=== PATIENT | male | born 1965 | race African-American/Black ===

== ENCOUNTER → 2016-12-29 | Outpatient (CLI) | payer MEDICARE, BC, OTHER ==
[~2016-12-29] MED LIST: ACETAMINOPHEN650 M3; ADALAT CC PO; ADALATCC; ALBUTEROL17 GM INH; ALLOPURINOL300 MG PO; ALTACE; ALTACE PO; AMLODIPINE BESY10 MG PO; AMOXICILLIN PO; ATENOLOL PO; AUGMENTIN PO; BACTRIM DS TABL1 TA1 PO; BENAZEPRIL PO; BENICAR; BENICAR HCT 40-1 TA1 PO; BYSTOLIC10 MG PO; BYSTOLIC20 MG PO; BYSTOLIC5 MG PO; CALCITROL PO; CARAFATE1 GM PO; CARBIDOPA LE S PO; CARBIDOPA PO; CARBIDOPA-LEVO1 EACH PO; CARBO/LEVO PO; CARVEDILOL25 MG PO; CATAPRES0.1 MG PO; CENTRUM PO; CHLORTHALIDONE50 M1 PO; CLOPIDOGREL75 MG PO; COLCRYS0.6 MG PO; CRESTOR; CRESTOR PO; CRESTOR10 MG PO; CYMBALTA PO; CYMBALTA20 MG PO; CYMBALTA30 MG PO; DEPO-TESTOTERO100 MG IM; DESYREL100 MG PO; DULOXETINE PO; EC-NAPROSYN500 MG; EC-NAPROSYN500 MG PO; ECOTRIN325 MG PO; FENTANYL; FENTANYL PO; FENTANYL1 EAC3 TOP; FERRO-TIME325 MG PO; FERROUS SULFATE; FERROUS SULFATE PO; FLEXERIL; FLEXERIL10 MG PO; GABAPENTIN400 MG PO; GABAPENTIN800 MG PO; HCTZ PO; HUMALOG 50/50; HUMALOG MI100 UNIT/3; HUMALOG MIX 50/10 ML SQ; HUMALOG MIX 50/53 ML SUBQ; HUMALOG MIX 75/10 ML; HYDRALAZINE HCL25 MG PO; HYDROCODON-ACE1 EAC5 PO; HYDROCODON-ACE1 EAC9 PO; IMDUR-ER30 M2 PO; INDOMETHACIN25 MG PO; LASIX PO; LODOSYN25 M1; LOPRESSOR PO; LOTENSIN PO; LOTREL 5/20 MG1 CAP PO; MECLIZINE PO; MEDI-MECLIZINE25 M1 PO; MEGACE PO; MEGESTROL ACETA40 MG PO; MEGESTROL PO; METFORMIN PO; METOPROLOL PO; METOPROLOL SUCC25 MG PO; METOPROLOL TART25 MG PO; MIRALAX17 GM PO; MIRAPEX; MULTI-VITAMIN1 TAB; MYLANTA GAS80 M1; NAPROSYN PO; NAPROSYN500 MG PO; NAPROXEN; NAPROXEN375 MG PO; NEPHRO-VITE RX T1 M1 PO; NEPHRO-VITE RX1 EACH PO; NEURONTIN PO; NEURONTIN600 MG PO; NEURONTIN800 MG PO; NEXIUM PO; NITRO-DUR1 PATCH .1 TD; NORMODYNE; NORVASC PO; OMEPRAZOLE PO; OMEPRAZOLE40 M1 PO; OXYCODONE HCL15 MG PO; PANTOPRAZOLE PO; PANTOPRAZOLE SO40 MG PO; PERCOCET 10/31 UDTA1 PO; PERCOCET PO; PERCOCET10 PO; PHENERGAN SUPP25 M1 PR; PHENERGAN25 MG; PHENERGAN25 MG PO; PLAVIX PO; PREDNISONE PO; PREDNISONE10 MG PO; PREVACID PO; PROAIR HFA8.5 GM INH; PROTONIX PO; QUETIAPINE FUM100 MG PO; REGLAN10 MG PO; RENAL VITAMIN PO; RENAVIT TABLET0.8 MG PO; RENVELA800 MG PO; SENSIPAR30 MG PO; SEROQUEL PO; SEROQUEL50 M1 PO; SINEMET 10-1001 EACH PO; SOD BICARBONATE PO; SODIUM BICARBO650 MG PO; TOPROL XL; TOPROL XL PO; TRAZODONE HCL100 MG PO; TRAZODONE PO; ULORIC80 MG PO; ULTRAM; UNKNOWN BP MED; VICODIN PO; VIT B-12 IM; VOLTAREN75 MG PO; XANAX PO; ZITHROMAX PO; ZOCOR PO; ZOFRAN ODT4 MG SL; ZOFRAN ODT4 MG/UDTAB PO; ZOFRAN PO; ZOFRAN2 MG/M1 PO; ZYLOPRIM; ZYLOPRIM PO; [UNRECOGNIZED DRUG - OTHER]; [UNRECOGNIZED DRUG - OTHER]; [UNRECOGNIZED DRUG - OTHER] PO
== END | disposition left against medical advice (07) ==
LOC: SLAB 18:54
DX: E87.5 Hyperkalemia (principal)
CPT/HCPCS: 36415; 84132

== ENCOUNTER 2017-01-11 21:46 | Emergency (ER) | payer MEDICARE, BC, OTHER ==
[~2017-01-11 21:46] MED LIST changes: -CARBO/LEVO PO; -CLOPIDOGREL75 MG PO; -HYDRALAZINE HCL25 MG PO; -MEDI-MECLIZINE25 M1 PO; -NEPHRO-VITE RX1 EACH PO; -PERCOCET10 PO; -PHENERGAN25 MG
[2017-01-11 22:52] LABS: BASOPHIL# 0.1 X10e3 (0-0.3); BASOPHIL% 2.2 % (0-2.5); EOSINOPHIL# 0.1 X10e3 (0-0.7); HEMATOCRIT 36.1 % (38.0-50.0); HEMOGLOBIN 11.8 gm/dL (13.0-16.0); LYMPHOCYTE# 1.4 X10e3 (1.0-3.5); LYMPHOCYTE% 24.6 % (17.0-45.0); MEAN CELL VOLUME 93.5 FL (83-96); MEAN CORPUSCULAR HEMOGLOBIN 30.6 PG (28-34); MEAN CORPUSCULAR HGB CONC 32.7 g/dL (30-36); MONOCYTE# 0.7 X10e3 (0-1.0); MONOCYTE% 11.6 % (3.0-12.0); NEUTROPHIL# 3.4 X10e3 (1.5-7.1); NEUTROPHIL% 60.6 % (40-75); PLATELET COUNT 173 X10e3 (140-420); RED BLOOD COUNT 3.86 X10e (3.90-5.60); RED CELL DISTRIBUTION WIDTH 16.6 % (11.0-15.5); WHITE BLOOD COUNT 5.6 X10e3 (4.0-10.5)
[2017-01-11 22:56] LABS: DIFF IND YES
[2017-01-11 23:10] LABS: ANISOCYTOSIS SL; PLATELET ESTIMATE NORMAL (NORMAL); POIKILOCYTOSIS SL
[2017-01-11 23:15] LABS: ALBUMIN SERUM 2.9 g/dL (3.5-5.0); BILIRUBIN, DIRECT 0.1 mg/dL (0.0-0.2); BILIRUBIN,INDIRECT 0.4 mg/dL (0.0-0.9); BILIRUBIN,TOTAL 0.5 mg/dL (0.2-2.0); BUN/CREATININE RATIO 5.26; CALCIUM SERUM 8.1 mg/dL (8.4-10.2); CREATININE SERUM 9.3 mg/dL (0.6-1.4); GLOM FILT RATE Estimated 6.9 mL/min (>60); POTASSIUM 4.4 mmol/L (3.5-5.1); PROTEIN TOTAL SERUM 6.5 g/dL (6.0-8.3)
== END 2017-01-11 23:47 | disposition home or self-care (01) ==
LOC: SED 21:46
PROVIDERS: Emergency Medicine
DX: R10.84 Generalized abdominal pain (principal); I10 Essential (primary) hypertension; K21.9 Gastro-esophageal reflux disease without esophagitis; F31.9 Bipolar disorder, unspecified; F41.9 Anxiety disorder, unspecified; Z90.49 Acquired absence of other specified parts of digestive tract; Z79.899 Other long term (current) drug therapy
CPT/HCPCS: 36415; 80048; 80076; 83690; 85025; 96374; 96375; 99284; J1642; J2270; J2405; J2550

== ENCOUNTER → 2017-01-17 04:34 | Emergency (ER) | payer MEDICARE, BC ==
[~2017-01-17 04:34] MED LIST changes: +CARBO/LEVO PO; +CLOPIDOGREL75 MG PO; +HYDRALAZINE HCL25 MG PO; +MEDI-MECLIZINE25 M1 PO; +NEPHRO-VITE RX1 EACH PO; +PERCOCET10 PO; +PHENERGAN25 MG
== END | disposition home or self-care (01) ==
LOC: SED 04:34
DX: R10.9 Unspecified abdominal pain (principal); G89.29 Other chronic pain; I25.10 Atherosclerotic heart disease of native coronary artery without angina pectoris; E11.9 Type 2 diabetes mellitus without complications; N18.6 End stage renal disease; Z95.1 Presence of aortocoronary bypass graft
CPT/HCPCS: 96372; 99283; J2270

== ENCOUNTER 2017-03-08 21:16 | Inpatient (IN) | payer MEDICARE, BC ==
--- NOTE | ~2017-03-08 | HP ---
Unit #: [id number] #: [id number] Patient: DARIAN FORREST SR- [id number] [address] [place], [place] [address] [id number] I MR#: [id number] NAME: DARIAN FORREST ROOM: [facility] Age: 51 Sex: M Admission Date: 03/08/2017 : 1965 Attending Physician: Lily Smith M.D. Primary Care Physician: Chance Pitt M.D. HISTORY AND PHYSICAL CHIEF COMPLAINT Cardiopulmonary arrest. DISCUSSION This is a 51-year-old gentleman, with past medical history of end-stage renal disease on hemodialysis, followed by Dr. Patiño, hypertension, diabetic peripheral neuropathy, hyperlipidemia, coronary artery disease, chronic anemia, diabetes, history of gout, bipolar disorder. He was found at home unresponsive less than thirty minutes, EMS was called, and on arrival EMS, the patient was found to be in V-fib. He was given four shocks and then the patient went to pulseless electrical activity and given amiodarone, epinephrine x6. The patient was brought to the emergency room. He was found to be again in pulseless electrical activity and the patient was given, again, epinephrine and then the patient being intubated and then the patient got a pulse. They found four Fentanyl patches on the skin which have been removed, and given the Narcan x2 4 mg. The patient currently been intubated and hypotensive, been started on the epinephrine drip in the past which was discontinued and then increased blood pressure, again blood pressure dropped to 90 and being started on Levophed drip. The patient is on the vent currently. PAST MEDICAL HISTORY 1. History of admission in the [facility] in April 2015 for unstable angina. 2. History of coronary artery disease. 3. End-stage renal disease on hemodialysis, followed by Dr. Patiño. 4. Hypotension. 5. History of diabetes. 6. Diabetic peripheral neuropathy. 7. Hypertension. 8. Coronary artery disease. 9. History of gout. 10. Bipolar disorder. 11. History of chronic anemia. 12. History of gastric ulcer. 13. History of noncompliance. PAST SURGICAL HISTORY 1. History of gastric bypass. 2. History of abdominoplasty. 3. Abdominal hernia repair. 4. Penile implant. 5. Transmetatarsal amputation of left foot. 6. Dialysis Catapres. Unit #: [id number] #: [id number] Patient: DARIAN FORREST SR- 7. History of cardiac catheterization in December 06, 2014 shows 80% to 90% paralysis in circumflex, 80% stenosis in the third marginal branch of the circumflex, and 70% stenosis of mid left anterior descending, 50% stenosis of the right coronary artery, ejection fraction 70%. SOCIAL HISTORY The patient lives with his , no tobacco, no alcohol abuse. FAMILY HISTORY Positive for coronary artery disease. ALLERGIES No known drug allergies. MEDICATIONS 1. Medications not known at this time from the previous list, he is on the Plavix 2. Imdur ER 3. Carbidopa Levodopa 50-200 4. Seroquel 5. Desyrel 6. Xanax 7. Metoprolol 8. Duloxetine 9. Pantoprazole 10. Ferrous sulfate 11. Reglan 12. Fentanyl PHYSICAL EXAMINATION GENERAL: 51-year-old gentleman currently on the vent. VITAL SIGNS: His current vitals are the following, temperature 99.5, heart rate 90, respiratory rate is 16, blood pressure 90/72. HEENT EXAMINATION: Pupils equal reactive to light and accommodation. NECK: Supple. Trachea midline. HEART: S1 and S2, regular rate and rhythm. LUNGS: Clear to auscultation. ABDOMEN: Bowel sounds are positive. There are multiple scars in the abdomen. EXTREMITIES: Inspection normal. No cyanosis, no clubbing, and no edema. There is a transmetatarsal amputation of the left foot. NEUROLOGIC: He is currently on the vent. DIAGNOSTIC STUDIES LABORATORY: Troponin 0.75, phosphorous 6.8, sodium 135, potassium is 4.1, chloride 97, CO2 23, glucose 239, BUN 23, creatinine 4.6, alkaline phosphatase 205, albumin 2.6, magnesium 2.6, white count 11.8, hemoglobin 8.1, hematocrit 26.2, platelets 136. ASSESSMENT 1. Cardiopulmonary arrest currently on the vent, will admit the patient to intensive care unit, pulmonary, Dr. Mart for vent management, empirically start the patient on IV Zosyn. 2. ST elevation myocardial infarction with EKG changes, ST elevation in the inferior leads. Patient currently with graph hematuria, not candidate for anticoagulation, poor prognosis. Ask cardiology, Dr. Frost to evaluate. 3. Graph hematuria, placed on three way irrigation. Unit #: [id number] #: [id number] Patient: DARIAN FORREST SR- 4. End-stage renal disease on hemodialysis. 5. History of hypertension. 6. Diabetes. 7. History of coronary artery disease. 8. Anemia with history of chronic anemia. 9. Dyslipidemia. 10. History of peripheral neuropathy. 11. History of bipolar. 12. Gout. 13. DVT prophylaxis, placed on SCDs. 14. Place on also Accu-Chek sliding scale. Plan is to admit to the INTENSIVE CARE UNIT, IV Protonix, IV Zofran, three way [place] irrigation, empirically start on Zosyn, ask cardiology, Dr. Frost to evaluate, nephrology consult, Dr. Patiño, and pulmonary consult, Dr. Mart. Dictated by Lalo [place]/kartik TD: 03/09/2017 11:40 JOB #: [id number] HISTORY AND PHYSICAL Page 1 of 1 X X HISTORY AND PHYSICAL
--- NOTE | ~2017-03-08 | EKG ---
PATIENT: DARIAN FORREST UNIT #: [id number] Ventricular Rate: 84 BPM Atrial Rate: 84 BPM P-R Interval: 238 ms QRS Duration: 100 ms Q-T Interval: 392 ms QTC Calculation(Bezet): 463 ms P [place]: 93 degrees Calculated R [place]: 97 degrees Calculated T [place]: 134 degrees Diagnosis Line: Sinus rhythm with sinus arrhythmia with 1st degree Diagnosis Line: A-V block Diagnosis Line: Rightward axis Diagnosis Line: ST and T wave abnormality, consider anterolateral Diagnosis Line: ischemia Diagnosis Line: Acute inferior wall ST elevation infarct Diagnosis Line: Prolonged QT Diagnosis Line: Abnormal ECG Diagnosis Line: When compared with ECG of 08-MAR-2017 21:41, Diagnosis Line: (unconfirmed) Diagnosis Line: Sinus rhythm has replaced Junctional rhythm Diagnosis Line: ST now depressed in Anterior leads Diagnosis Line: T wave inversion less evident in Lateral leads Diagnosis Line: Confirmed by KINGA POOLE MD ([id number]) on Diagnosis Line: 03/10/2017 11:06:53 AM INTERPRETING MDDiane HERNANDEZ
--- NOTE | ~2017-03-08 | CR72 ---
[facility] A Service of [facility] RADIOLOGY TEXT RESULTS PATIENT: DARIAN FORREST - LOCATION: [address]-18 : [birth year] UNIT #: [id number] AGE: [address]: Lily Smith MD SEX: M ORDER DR: [id number] [facility] [address] [facility]. [place], [place] [address] [id number] I MR#: [id number] Acc #: [id number] NAME: DARIAN FORREST SR- : 1965 SEX: M STUDY DATE/TIME: 03/08/2017 22:07 UNIT: [facility] ROOM: [facility] STUDY DESCRIPTION: CR Chest Single View Portable Attending Physician: Abraham Mitchell M.D. Ordering Physician: Perla Duffy M.D. Primary Care Physician: Chance Pitt M.D. MEDICAL IMAGING REPORT This report is preliminary unless electronic signature is present EXAM Portable chest 03/08/2017 HISTORY Respiratory failure, intubated. FINDINGS There is mild cardiac enlargement. Endotracheal tube has been inserted with the tip approximately 3 cm above the missy. Nasogastric tube has been inserted with tip below the diaphragm not visualized. Right subclavian approach MediPort catheter tip crosses the midline with tip in the left subclavian vein region. Clinical correlation is recommended. Vascular stents are seen in the axillary regions bilaterally. There is poor inspiratory result and elevation of the right hemidiaphragm with bibasilar atelectasis. There are no pleural effusions. IMPRESSION 1. Endotracheal tube tip is 3 cm above the missy. Nasogastric tube tip is below the diaphragm but not visualized. Right subclavian approach MediPort catheter crosses the midline with the tip located in the left subclavian vein region. Clinical correlation is recommended. 2. No active pulmonary disease. 3. Mild cardiac enlargement. Dictated by... Jose Chaves M.D. THIS IS AN ELECTRONICALLY VERIFIED REPORT Jose Chaves M.D. at 03/11/2017 8:27 AM MAGALY/clare TD: 03/09/2017 02:28 JOB #: [id number] [facility] A Service of [facility] RADIOLOGY TEXT RESULTS PATIENT: DARIAN FORREST SR- LOCATION: [address] : [birth year] UNIT #: [id number] AGE: [address]: Lily Smith MD SEX: M ORDER DR: MEDICAL IMAGING REPORT Page 1 of 1 COPY
--- NOTE | ~2017-03-08 | EKG ---
PATIENT: DARIAN FORREST UNIT #: [id number] Ventricular Rate: 79 BPM Atrial Rate: 81 BPM QRS Duration: 106 ms Q-T Interval: 376 ms QTC Calculation(Bezet): 431 ms Calculated R [place]: 79 degrees Calculated T [place]: 136 degrees Diagnosis Line: Accelerated Junctional rhythm with Premature Diagnosis Line: supraventricular complexes Diagnosis Line: ST elevation consider inferior injury or acute Diagnosis Line: infarct Diagnosis Line: ACUTE TN / STEMI Diagnosis Line: Consider right ventricular involvement in acute Diagnosis Line: inferior infarct Diagnosis Line: Abnormal ECG Diagnosis Line: When compared with ECG of 08-MAR-2017 21:41, Diagnosis Line: (unconfirmed) Diagnosis Line: Premature supraventricular complexes are now Diagnosis Line: Present Diagnosis Line: Confirmed by ZULEMA AVILA, KINGA ([id number]) on Diagnosis Line: 03/10/2017 11:14:10 AM INTERPRETING MDDiane HERNANDEZ
--- NOTE | ~2017-03-08 | CO ---
Unit #: [id number] #: [id number] Patient: DARIAN FORREST SR- [id number] [address] [address] [id number] I MR#: [id number] NAME: DARIAN FORREST ROOM: [facility] Age: 51 Sex: M Admission Date: 03/08/2017 : 1965 Attending Physician: Lily Smith M.D. Primary Care Physician: Chance Pitt M.D. CONSULTATION REPORT REASON FOR CONSULTATION Critical care management. CHIEF COMPLAINT Cardiac arrest. HISTORY OF PRESENT ILLNESS The patient basically is a 51-year-old male, past medical history of end-stage renal disease, who was brought into the emergency room with complaint of cardiac arrest. According to the ER records, the patient was found 30 minutes later by the unresponsive. EMS was called and they began CPR upon EMS arrival. He was found to be in V-Fib and was intubated and defibrillated four times. He was given amiodarone 300 mg after shock. The patient was given epinephrine six times and his sugar was 110. He had hemodialysis on the day of presentation and, per family, was significantly bleeding from the dialysis shunt site and they removed 15 pounds of fluid according to the family. I am seeing the patient at the bedside, currently intubated, sedated. PAST MEDICAL HISTORY (1) , hypertension, end-stage renal disease, coronary artery disease, dyslipidemia, neuropathy, history of gout. PAST SURGICAL HISTORY Shunt placement, gastric bypass, abdominoplasty, penile implant, dialysis catheter placement. SOCIAL HISTORY Nonsmoker. No alcohol. No drug abuse. MEDICATION As per MAR, has been reviewed. REVIEW OF SYSTEMS Unobtainable. PHYSICAL EXAMINATION VITAL SIGNS: Temperature 101. Pulse 106. Respiration 30. Blood pressure 104/96. CARDIOVASCULAR: S1+S2. RESPIRATORY: Bilateral air entry. Bilateral mild rhonchi. GASTROINTESTINAL: Nontender. Soft. Bowel sounds positive. EXTREMITIES: No edema. SKIN: No rashes. Unit #: [id number] #: [id number] Patient: DARIAN FORREST SR- LYMPHATIC: No lymphadenopathy. DIAGNOSTIC STUDIES Labs and imaging have been reviewed. ASSESSMENT Acute respiratory failure, cardiac arrest, likely aspiration and altered mental status, questionable anoxic brain injury, critically ill patient. PLAN To admit the patient, monitor hemoglobin and hematocrit, continue ventilator support, broad-spectrum IV antibiotics, GI and DVT prophylaxis, follow up cultures, Neurology, Nephrology and Cardiology consultation, 2-D echo, troponin. The patient will be closely monitored. Please see orders for detailed plan. Thank you very much for this consultation. We will continue to follow the patient. Dictated by... Lalo Vasquez TD: 03/09/2017 10:56 JOB #: [id number] CONSULTATION REPORT Page 1 of 1 X Mp Mart MD X CONSULTATION REPORT
--- NOTE | ~2017-03-08 | EKG ---
PATIENT: DARIAN FORREST UNIT #: [id number] Ventricular Rate: 56 BPM Atrial Rate: 56 BPM QRS Duration: 158 ms Q-T Interval: 476 ms QTC Calculation(Bezet): 459 ms P [place]: 62 degrees Calculated R [place]: 107 degrees Calculated T [place]: 85 degrees Diagnosis Line: Sinus bradycardia Diagnosis Line: Right bundle branch block Diagnosis Line: ST elevation consider inferior injury or acute Diagnosis Line: infarct Diagnosis Line: ACUTE MO / STEMI Diagnosis Line: Consider right ventricular involvement in acute Diagnosis Line: inferior infarct Diagnosis Line: Abnormal ECG Diagnosis Line: When compared with ECG of 09-SEP-2016 03:06, Diagnosis Line: Right bundle branch block is now Present Diagnosis Line: Criteria for Septal infarct are no longer Present Diagnosis Line: Significant changes have occurred Diagnosis Line: Confirmed by KINGA POOLE MD ([id number]) on Diagnosis Line: 03/10/2017 10:45:01 AM INTERPRETING MD: DAVID
--- NOTE | ~2017-03-08 | EKG ---
PATIENT: DARIAN FORREST UNIT #: [id number] Ventricular Rate: 76 BPM Atrial Rate: 75 BPM QRS Duration: 110 ms Q-T Interval: 380 ms QTC Calculation(Bezet): 427 ms Calculated R [place]: 78 degrees Calculated T [place]: 146 degrees Diagnosis Line: Accelerated Junctional rhythm with retrograde Diagnosis Line: conduction Diagnosis Line: ST elevation consider inferior injury or acute Diagnosis Line: infarct Diagnosis Line: ACUTE IN / STEMI Diagnosis Line: Consider right ventricular involvement in acute Diagnosis Line: inferior infarct Diagnosis Line: Abnormal ECG Diagnosis Line: When compared with ECG of 08-MAR-2017 21:28, Diagnosis Line: (unconfirmed) Diagnosis Line: No significant change was found Diagnosis Line: Confirmed by KINGA POOLE MD ([id number]) on Diagnosis Line: 03/10/2017 11:13:51 AM INTERPRETING MD: DAVID
--- NOTE | ~2017-03-08 | CO ---
Unit #: [id number] #: [id number] Patient: DARIAN FORREST SR- [id number] [address] [place], [place] [address] [id number] I MR#: [id number] NAME: DARIAN FORREST ROOM: [facility] Age: 51 Sex: M Admission Date: 03/08/2017 : 1965 Attending Physician: Lily Smith M.D. Primary Care Physician: Chance Pitt M.D. Requesting Physician: Abraham Mitchell M.D. CONSULTATION REPORT REASON FOR CONSULTATION Patient with ESRD, hyperkalemia, volume overload, status post cardiac arrest. HISTORY OF PRESENT ILLNESS This is an unfortunate 51-year-old gentleman with history of metabolic syndrome, type 2 diabetes, hypertension, dyslipidemia, bipolar disorder who was admitted last night through the ER complaining of shortness of breath, was dialyzed last night, large volume of fluid removal in the morning. The patient developed again cardiac arrest and was found post cardiac arrest with a potassium of 6.3 and metabolic acidosis whether that is a consequence of acute cardiopulmonary arrest or patient had a persistent hyperkalemia is not entirely clear as he was dialyzed on a low potassium bout last night. The patient also has the history of bipolar disorder, peripheral neuropathy, dyslipidemia, chronic anemia. And seemed to have ST elevation acute myocardial infarction. Seemed to have triggered the patient's cardiopulmonary arrest as probably a cardiac event. The patient's past medical history is as in history of presenting illness. FAMILY HISTORY, SOCIAL HISTORY, AND REVIEW OF SYSTEMS Could not be obtained. MEDICATIONS The patient received multiple medications include some Levophed, violeta-epinephrine, he is on insulin, started on antibiotic with Zosyn and vancomycin, received propofol, received some fluid during code and sodium bicarbonate. PHYSICAL EXAMINATION GENERAL: The patient seen intubated and unresponsive. VITAL SIGNS: Temperature is 97, pulse 41-50, blood pressure 177/77. HEENT: Dry mucosa, no oral exudate. NECK: Supple. Positive JVD, no bruit. No thyromegaly. No cervical lymphadenopathy. CHEST: Course rhonchi bilaterally. CARDIOVASCULAR EXAM: Regular rate and rhythm. No rub. ABDOMEN: Soft, mild distention, positive bowel sounds. EXTREMITIES: The patient has positive edema. DIAGNOSTIC STUDIES LABORATORY DATA: Sodium 134, potassium 6.3, chloride 98, bicarb 14, BUN 36, BUN 5.7, glucose __, calcium was 7.8, phosphorous 6.8. The patient Unit #: [id number] #: [id number] Patient: DARIAN FORREST SR- had CK of 632, has troponin of 57.9. ASSESSMENT Patient with end-stage renal disease, admitted with volume overload, acute ST DC, became hemodynamically unstable, and went into cardiopulmonary arrest, intubated, will do another session of dialysis, pull some fluid, will add vancomycin to the antibiotic regimen. Thank you very much for the opportunity to share care of this patient. The patient is critically ill, spend around forty minutes of critical care time taking care of this patient. Dictated by... Lalo Carlson/kartik TD: 03/10/2017 07:55 JOB #: [id number] CONSULTATION REPORT Page 1 of 1 X Shaheen Burgess MD X CONSULTATION REPORT
--- NOTE | ~2017-03-08 | A ---
[facility] Nutrition Therapy DATE: 03/09/17 Patient: DARIAN Carballo ASHLEY FORREST Physician: LANE Address: [address] [place] [address] ROAD Room/Bed: [address], Zip: [place] [address] Admit Date: 03/08/17 Date of : [birth year] Height: 5 8 Weight: 229 104 NUTRITIONAL ASSESSMENT: REASON: NPO IN ICU ASSESSMENT PT IS 51 Y.O. MALE ADMITTED FOR CARDIO PULMONARY ARREST PT CODED THIS AM IN ICU. PT ON VENT UNRESPONSIVE. POOR PROGNOSIS NOTED. RD AVAILABLE FOR RECOMMENDATIONS. Respectfully, LEE DOW MS, RD, LD [facility] cc: client file
--- NOTE | ~2017-03-08 | DS ---
Unit #: [id number] #: [id number] Patient: DARIAN FORREST SR- [id number] [address] [place], [place] [address] [id number] I MR#: [id number] NAME: DARIAN FORREST ROOM: [facility] Age: 51 Sex: M Admission Date: 03/08/2017 : 1965 Discharge Date: 03/09/2017 Attending Physician: Lily Smith M.D. Primary Care Physician: Chance Pitt M.D. DISCHARGE SUMMARY SUMMARY DATE OF March 09, 2017 HOSPITAL COURSE A 51-year-old patient presented to [facility] with cardiopulmonary arrest. Details are as per admission History and Physical. Patient had acute ST elevation CO and gross hematuria. He also had end-stage renal disease. Patient was seen by Dr. Burgess, Dr. Frost, and Dr. Mart in consultation. Patient coded multiple times, and unfortunately he did not make it and on March 09, 2017, at 1517 hours. Patient's condition was discussed with patient's . Dictated by... Lalo Coronado/cherelle TD: 03/12/2017 21:22 JOB #: [id number] DISCHARGE SUMMARY Page 1 of 1 X Lily Smith MD X DISCHARGE SUMMARY
--- NOTE | ~2017-03-08 | CR72 ---
[facility] A Service of [facility] & [facility] RADIOLOGY TEXT RESULTS PATIENT: DARIAN FORREST - LOCATION: [address]-18 : [birth year] UNIT #: [id number] AGE: [address]: Lily Smith MD SEX: M ORDER DR: [id number] [facility] [address] [facility]. [place], [place] [address] [id number] I MR#: [id number] Acc #: [id number] NAME: DARIAN FORREST SR- : 1965 SEX: M STUDY DATE/TIME: 03/09/2017 10:18 UNIT: [facility] ROOM: [facility] STUDY DESCRIPTION: CR Chest Single View Portable Attending Physician: Lily Smith M.D. Ordering Physician: [facility] Primary Care Physician: Chance Pitt M.D. MEDICAL IMAGING REPORT This report is preliminary unless electronic signature is present EXAM Portable chest INDICATIONS Cardiac arrest today. COMPARISON STUDIES Compared with yesterday. FINDINGS There is some increasing perihilar density on the right. This may represent atelectasis or perihilar infiltrate. Heart size stable. Endotracheal tube is stable. NG tube remains. Stable appearance of the chest port. IMPRESSION Increased perihilar density on the right may reflect atelectasis or perihilar infiltrate. Dictated by... Apolinar Lama M.D. THIS IS AN ELECTRONICALLY VERIFIED REPORT Apolinar Lama M.D. at 03/10/2017 10:30 AM ARS/pcl TD: 03/09/2017 12:12 JOB #: [id number] MEDICAL IMAGING REPORT Page 1 of 1 COPY
--- NOTE | ~2017-03-08 | CO ---
Unit #: [id number] #: [id number] Patient: DARIAN FORREST SR- [id number] [address] [place], [place] [address] [id number] MR#: [id number] NAME: DARIAN FORREST ROOM: [facility] Age: 51 Sex: M Admission Date: 03/08/2017 : 1965 Attending Physician: Lily Smith M.D. Primary Care Physician: Chance Pitt M.D. Consultation Date: 03/09/2017 CONSULTATION REPORT REASON FOR CONSULTATION Cardiopulmonary arrest. HISTORY OF PRESENT ILLNESS This is a 51-year-old male, who was seen by our group in 2014, where he underwent cardiac catheterization for non-ST elevation myocardial infarction, where he was found to have 80% to 90% stenosis to the circumflex artery and the third marginal branch of the circumflex artery. LAD has 70% stenosis with 50% stenosis to the right coronary artery. At that time, the patient was admitted for upper GI bleed and had a large marginal ulcer, status post Pati-en-Y gastric bypass. Unfortunately, because of his GI bleed, we were unable to anticoagulate him for any cardiac procedures. He was to follow up with Cardiology. The patient is admitted status post cardiopulmonary arrest. There is no family currently available and information has been obtained from the emergency room records and nursing staff. According to the emergency room record, the patient had hemodialysis yesterday, where they took off 15 pounds. He did not see his apparently for 30 minutes and when she found him, he was unresponsive. She began CPR. When EMS arrived, he was in ventricular fibrillation and was shocked four times. He was treated with amiodarone. He then went into [facility] and received several doses of epinephrine. According to the ER records, the patient had significant bleeding from his hemodialysis shunt site in his left upper thigh yesterday as well. In the emergency room, the patient was intubated. He remained in [facility] and received CPR. His presenting EKG showed ST elevation in the inferior leads consistent with an acute ST elevation myocardial infarction. There are reciprocal changes in the lateral leads. On admission, the patient was hypertensive, but later became hypotensive, where his blood pressure dropped to 60s systolically. He was briefly placed on Levophed drip. He received heparin bolus followed by continuous infusion. His presenting troponin was 0.75, but peaked at 57.92. PAST MEDICAL HISTORY 1. Non-ST elevation myocardial infarction on 12/06/2014, status post cardiac catheterization per Dr. Castillo, that revealed left main normal. LAD 70% stenosis before the origin of the second septal salesperson burial needs. Circumflex artery, medium caliber nondominant vessel with proximal stenosis of 80% to 90% before the origin of the first marginal branch. First and second marginal branches were normal. Third marginal branch with 80% to 90% stenosis followed by 80% to 90% stenosis beyond the second marginal branch. The first, second, and posterior marginal branches are normal. Right coronary artery, large caliber, dominant vessel with 50% stenosis in the distal half. PDA and PLV branches are normal. Ejection Unit #: [id number] #: [id number] Patient: DARIAN FORREST SR- fraction of greater than 70%. 2. A 2D echocardiogram on 12/03/2014 showed an ejection fraction equal to 55% with mild tricuspid regurgitation. Right ventricular systolic pressure 40 to 50 mmHg. 3. Hypertension. 4. Hyperlipidemia. 5. Diabetes mellitus, type 2. 6. Peripheral neuropathy. 7. End-stage renal disease, on hemodialysis. 8. Anemia. 9. Gout. 10. Bipolar disorder. 11. Nonsmoker. 12. History of GI bleed. PAST SURGICAL HISTORY 1. Pati-en-Y gastric bypass in 11/2014. 2. Wound debridement in 12/2014. 3. Abdominoplasty. 4. Abdominal hernia repair. 5. Penile implant. 6. Metatarsal amputation of the left foot. 7. AV dialysis catheter placement. SOCIAL HISTORY The patient is and on disability. According to the records, he has not been a smoker. No record of illicit drug or alcohol use. FAMILY HISTORY Both parents positive for myocardial infarction. Mother at age 56 and father at age 51. ALLERGIES No known drug allergies. HOME MEDICATIONS Plavix 75 mg daily, Imdur 30 mg daily, carbidopa/levodopa 100 mg daily, Seroquel 200 mg q.h.s., Desyrel 100 mg daily, Xanax 0.5 mg t.i.d., prednisone 10 mg daily p.r.n., metoprolol 25 mg b.i.d., Zofran 4 mg daily p.r.n., duloxetine 30 mg b.i.d., Protonix 40 mg b.i.d., ferrous sulfate 325 mg daily, fentanyl 25 mg every three days, Reglan 1 tablets a.c. and h.s., Percocet 10/325 q.4 hours p.r.n., Phenergan p.r.n., gabapentin 800 mg b.i.d., Megace 40 mg daily, meclizine 25 mg b.i.d., hydralazine 25 mg t.i.d., Norvasc 10 mg daily, one tablet daily, Bystolic 10 mg daily. REVIEW OF SYSTEMS Unable to obtain, because the patient is currently intubated. PHYSICAL EXAMINATION VITAL SIGNS: Blood pressure 143/114, heart rate 93, temperature 101.2. GENERAL: This is an obese 51-year-old young male, who is currently intubated. CHEST: With faint rhonchi on both lungs. ABDOMEN: Soft and obese with bowel sounds are present. EXTREMITIES: Without leg edema. DIAGNOSTIC STUDIES Unit #: [id number] #: [id number] Patient: DARIAN FORREST SR- LABORATORY RESULTS: Sodium 134, potassium 6.3, BUN 36, creatinine 5.7, magnesium 2.7. CK total of 632, MB is 53.1, MB index 8.4. Troponin is 6.00 to 57.92. Cholesterol 89, triglycerides 167, LDL 9, HDL 47. White count 13.5, hemoglobin 8.5, hematocrit 27.8, platelet count is 157. IMAGING STUDIES: Chest x-ray shows no active disease. Mild cardiac enlargement. CARDIOVASCULAR STUDIES: Presenting EKG shows sinus bradycardia with a prolonged first-degree AV block, right bundle-branch block. An ST elevation in the inferior leads III and aVF. Repeat EKG shows accelerated junctional rhythm, rate of 76 beats per minute. T-wave inversion in V4 through V6, I and aVL with persistent ST-elevation in III and aVF. IMPRESSION 1. Status post cardiopulmonary arrest. 2. Acute ST-elevation inferior wall myocardial infarction. 3. Hypotension and then now hypertensive. 4. Coronary artery disease. 5. History of gastric bypass in 11/2014. 6. End-stage renal disease, on hemodialysis. 7. Hyperkalemia. 8. Diabetes mellitus type 2. PLAN 1. Cardiology was consulted, because of cardiopulmonary arrest. We will start the patient on aspirin in addition to heparin drip. 2. We will have a stat echo done this a.m. to evaluate left ventricular systolic function. 3. Repeat troponin and EKG. 4. Levophed drip has been discontinued, because of hypertension. We will treat hypertension with hydralazine. 5. We will add statin once the patient is able to take p.o. Thank you for allowing us to assist with this patient's care. Dictated by... Shameka Topete/german TD: 03/09/2017 16:17 JOB #: [id number] CONSULTATION REPORT Page 1 of 1 X Hiren De La Cruz APRN X CONSULTATION REPORT
[~2017-03-08 21:16] MED LIST changes: -CARBO/LEVO PO; -CLOPIDOGREL75 MG PO; -HYDRALAZINE HCL25 MG PO; -MEDI-MECLIZINE25 M1 PO; -NEPHRO-VITE RX1 EACH PO; -PERCOCET10 PO; -PHENERGAN25 MG
[2017-03-08 21:46] LABS: ARTERIAL BLD GAS O2 SATURATION 86.9 % (90.0-100.0); ARTERIAL BLOOD GAS ART SITE RIGHT BRACHIAL; ARTERIAL BLOOD GAS CARBOXY HB 0.6 %sat (0.0-9.0); ARTERIAL BLOOD GAS DELIVERY AMBUBAG; ARTERIAL BLOOD GAS HCO3 20.1 mmol/L; ARTERIAL BLOOD GAS MET HB 1.4 %sat (0.0-2.0); ARTERIAL BLOOD GAS PCO2 76.5 mmHg (35.0-45.0); ARTERIAL BLOOD GAS pH 7.028 (7.350-7.450); ARTERIAL DRAW? YES
[2017-03-08 21:54] LABS: BASOPHIL# 0.1 X10e3 (0-0.3); BASOPHIL% 0.9 % (0-2.5); EOSINOPHIL# 0.1 X10e3 (0-0.7); EOSINOPHIL% 0.6 % (0.0-7.0); HEMATOCRIT 26.2 % (38.0-50.0); HEMOGLOBIN 8.1 gm/dL (13.0-16.0); LYMPHOCYTE# 2.8 X10e3 (1.0-3.5); LYMPHOCYTE% 24.1 % (17.0-45.0); MEAN CELL VOLUME 97.2 FL (83-96); MEAN CORPUSCULAR HGB CONC 30.9 g/dL (30-36); MONOCYTE# 0.3 X10e3 (0-1.0); NEUTROPHIL# 8.4 X10e3 (1.5-7.1); NEUTROPHIL% 71.4 % (40-75); PLATELET COUNT 136 X10e3 (140-420); RED BLOOD COUNT 2.69 X10e (3.90-5.60); RED CELL DISTRIBUTION WIDTH 16.5 % (11.0-15.5); WHITE BLOOD COUNT 11.8 X10e3 (4.0-10.5)
[2017-03-08 21:57] LABS: DIFF IND NO
[2017-03-08 22:17] LABS: ALBUMIN SERUM 2.6 g/dL (3.5-5.0); BILIRUBIN, DIRECT 0.2 mg/dL (0.0-0.2); BILIRUBIN,INDIRECT 0.5 mg/dL (0.0-0.9); BILIRUBIN,TOTAL 0.7 mg/dL (0.2-2.0); CREATININE SERUM 4.6 mg/dL (0.6-1.4); GLOM FILT RATE Estimated 16.1 mL/min (>60); MAGNESIUM 2.7 mg/dL (1.6-3.0); POTASSIUM 4.1 mmol/L (3.5-5.1); PROTEIN TOTAL SERUM 6.2 g/dL (6.0-8.3)
[2017-03-08 22:20] LABS: PHOSPHOROUS 6.8 mg/dL (2.5-4.6)
[2017-03-08 22:24] LABS: ALCOHOL BLOOD <5 mg/dL (0)
[2017-03-08 23:17] LABS: POC - CKMB 16.3 ng/mL (0.0-7.9); POC - TROPONIN 0.75 ng/mL (<=0.05)
[2017-03-09 01:57] LABS: POC - CKMB 20.7 ng/mL (0.0-7.9)
[2017-03-09] MEDS ORDERED: PERCOCET10 PO (03:31)
[2017-03-09] MEDS ORDERED: PHENERGAN25 MG (03:32)
[2017-03-09] MEDS ORDERED: GABAPENTIN800 MG PO (03:33)
[2017-03-09] MEDS ORDERED: MEGESTROL ACETA40 MG PO (03:36)
[2017-03-09] MEDS ORDERED: MEDI-MECLIZINE25 M1 PO (03:56)
[2017-03-09] MEDS ORDERED: HYDRALAZINE HCL25 MG PO (03:58)
[2017-03-09] MEDS ORDERED: NORVASC PO (03:59)
[2017-03-09] MEDS ORDERED: NEPHRO-VITE RX1 EACH PO (03:59)
[2017-03-09] MEDS ORDERED: FERRO-TIME325 MG PO (04:00)
[2017-03-09] MEDS ORDERED: BYSTOLIC10 MG PO (04:00)
[2017-03-09] MEDS ORDERED: CLOPIDOGREL75 MG PO (04:00)
[2017-03-09 04:01] LABS: ARTERIAL BLD GAS O2 SATURATION 99.9 % (90.0-100.0); ARTERIAL BLOOD GAS HCO3 20.2 mmol/L; ARTERIAL BLOOD GAS PCO2 25.5 mmHg (35.0-45.0); ARTERIAL BLOOD GAS pH 7.509 (7.350-7.450)
[2017-03-09] MEDS ORDERED: CARBO/LEVO PO (04:01)
[2017-03-09 04:02] LABS: ARTERIAL BLOOD GAS ART SITE RIGHT BRACHIAL; ARTERIAL BLOOD GAS DELIVERY VENT; ARTERIAL BLOOD GAS MET HB 1.6 %sat (0.0-2.0); ARTERIAL BLOOD GAS VENT MODE AC; ARTERIAL DRAW? YES
[2017-03-09 07:43] LABS: BASOPHIL% 0.2 % (0-2.5); EOSINOPHIL% 0.1 % (0.0-7.0); HEMATOCRIT 27.8 % (38.0-50.0); HEMOGLOBIN 8.5 gm/dL (13.0-16.0); LYMPHOCYTE# 0.6 X10e3 (1.0-3.5); LYMPHOCYTE% 4.8 % (17.0-45.0); MEAN CELL VOLUME 96.8 FL (83-96); MEAN CORPUSCULAR HEMOGLOBIN 29.5 PG (28-34); MEAN CORPUSCULAR HGB CONC 30.5 g/dL (30-36); MEAN PLATELET VOLUME 8.3 FL (6.5-11.5); MONOCYTE# 0.8 X10e3 (0-1.0); MONOCYTE% 6.1 % (3.0-12.0); NEUTROPHIL% 88.8 % (40-75); PLATELET COUNT 157 X10e3 (140-420); RED BLOOD COUNT 2.87 X10e (3.90-5.60); RED CELL DISTRIBUTION WIDTH 16.2 % (11.0-15.5); WHITE BLOOD COUNT 13.5 X10e3 (4.0-10.5)
[2017-03-09 07:50] LABS: DIFF IND NO
[2017-03-09 08:14] LABS: INR 1.3; PROTHROMBIN TIME (PATIENT) 14.3 SECONDS (10.0-11.7)
[2017-03-09 08:15] LABS: BUN/CREATININE RATIO 6.31; CALCIUM SERUM 7.8 mg/dL (8.4-10.2); CREATININE SERUM 5.7 mg/dL (0.6-1.4); GLOM FILT RATE Estimated 12.4 mL/min (>60)
[2017-03-09 08:20] LABS: POTASSIUM 6.3 mmol/L (3.5-5.1)
[2017-03-09 08:29] LABS: ARTERIAL BLOOD GAS PCO2 21.2 mmHg (35.0-45.0); ARTERIAL BLOOD GAS pH 7.247 (7.350-7.450)
[2017-03-09 08:31] LABS: ARTERIAL BLD GAS O2 SATURATION 99.2 % (90.0-100.0); ARTERIAL BLOOD GAS ALLEN TEST N; ARTERIAL BLOOD GAS ART SITE RIGHT RADIAL; ARTERIAL BLOOD GAS DELIVERY VENT; ARTERIAL BLOOD GAS HCO3 9.2 mmol/L; ARTERIAL BLOOD GAS MET HB 2.2 %sat (0.0-2.0); ARTERIAL BLOOD GAS VENT MODE AC; ARTERIAL DRAW? YES
[2017-03-09 08:49] LABS: %MB 8.4 % (0.0-4.0); MB 53.1 ng/ml
[2017-03-09 08:57] LABS: CHOLESTEROL 89 mg/dL (0-200); HDL CHOLESTEROL 47 mg/dL (29-75); LDL CHOLESTEROL 9 mg/dL (-130); LDL/HDL RATIO 0 RATIO (0-4); TRIGLYCERIDES 167 mg/dL (10-160)
[2017-03-09 10:30] LABS: ARTERIAL BLOOD GAS PCO2 33.9 mmHg (35.0-45.0); ARTERIAL BLOOD GAS pH 7.194 (7.350-7.450)
[2017-03-09 10:31] LABS: ARTERIAL BLD GAS O2 SATURATION 99.2 % (90.0-100.0); ARTERIAL BLOOD GAS ALLEN TEST N; ARTERIAL BLOOD GAS ART SITE RIGHT RADIAL; ARTERIAL BLOOD GAS DELIVERY VENT; ARTERIAL BLOOD GAS MET HB 1.9 %sat (0.0-2.0); ARTERIAL BLOOD GAS VENT MODE AC; ARTERIAL DRAW? YES
[2017-03-09 13:09] LABS: %MB 8.6 % (0.0-4.0); MB 67.1 ng/ml
== END 2017-03-09 15:17 | disposition expired ==
LOC: CED 21:16 → CEDOF 23:40 → CED 23:59 → CEDOF 23:59 → CICCU3 23:59 → CEDOF 03-09 01:57 → CICCU3 03-09 01:57
PROVIDERS: Emergency Medicine; Internal Medicine; Internal Medicine Cardiovascular Disease; Nurse Practitioner
PROC: 5A1935Z Respiratory Ventilation, Less than 24 Consecutive Hours (ICD-10-PCS; 2017-03-08)
PROC: 0BH17EZ Insertion of Endotracheal Airway into Trachea, Via Natural or Artificial Opening (ICD-10-PCS; 2017-03-08)
PROC: 5A1D00Z (ICD-10-PCS; principal; 2017-03-09)
PROC: B246YZZ Ultrasonography of Right and Left Heart using Other Contrast (ICD-10-PCS; 2017-03-09)
DX: I21.19 ST elevation (STEMI) myocardial infarction involving other coronary artery of inferior wall (principal); J96.00 Acute respiratory failure, unspecified whether with hypoxia or hypercapnia; I46.9 Cardiac arrest, cause unspecified; I95.9 Hypotension, unspecified; E87.2 Acidosis; N18.6 End stage renal disease; I47.2 Ventricular tachycardia; I12.0 Hypertensive chronic kidney disease with stage 5 chronic kidney disease or end stage renal disease; E11.22 Type 2 diabetes mellitus with diabetic chronic kidney disease; I48.91 Unspecified atrial fibrillation; I25.2 Old myocardial infarction; I10 Essential (primary) hypertension; E11.42 Type 2 diabetes mellitus with diabetic polyneuropathy; Z99.2 Dependence on renal dialysis; F31.9 Bipolar disorder, unspecified; Z79.02 Long term (current) use of antithrombotics/antiplatelets; Z79.52 Long term (current) use of systemic steroids; I25.10 Atherosclerotic heart disease of native coronary artery without angina pectoris; E87.5 Hyperkalemia; R31.0 Gross hematuria; M10.9 Gout, unspecified; Z66 Do not resuscitate
CPT/HCPCS: 31500; 36600; 71010; 80048; 80061; 80076; 82550; 82553; 82803; 82947; 83605; 83735; 84100; 84484; 85025; 85610; 85730; 87040; 92950; 93005; 93306; 94002; 94760; 99291; 99292; C9113; G0480; J0171; J0360; J0461; J1100; J1265; J1644; J1800; J2250; J2354; J2370; J2405; J2543; J3370; J3475; J7042; J7060